=== PATIENT | female | born 1990 | race African-American/Black ===

== ENCOUNTER 2017-12-18 16:20 | Emergency (ER) | payer MEDICAID ==
[~2017-12-18] VITALS: Ht 170.2 cm; Wt 90.0 kg
[2017-12-18] MEDS ORDERED: FAMOTIDINE 20MG/2ML VIAL IV STA (16:27)
[2017-12-18] MEDS ORDERED: ONDANSETRON HCL 4MG/2ML VIAL IV STA (16:27)
[2017-12-18] MEDS ORDERED: SODIUM CHLORIDE 0.9% 1,000 ML IV ONE ×2 (16:27→20:15)
[2017-12-18 16:49] LABS: BASOPHILS % 0.7 % (0.0-2.0); EOSINOPHILS % 0.3 % (0.0-5.0); HEMATOCRIT. 37.8 % (36.0-48.0); HEMOGLOBIN. 12.9 g/dL (12.0-16.0); LYMPHOCYTES % 29.6 % (20.0-50.0); MEAN CORPUSCULAR HEMOGLOBIN 28.9 pg (28.0-32.0); MEAN CORPUSCULAR VOLUME 84.5 fL (81.0-99.0); NEUTROPHILS % 62.4 % (40.0-76.0); PLATELET 262 x1000/uL (130-400); RED BLOOD CELL COUNT 4.47 mill/uL (4.2-5.4); RED CELL DISTRIBUTION WIDTH 13.7 % (11.6-14.6)
[2017-12-18 16:54] LABS: CHLORIDE 106 mEq/L (98-107)
[2017-12-18 17:00] LABS: PARTIAL THROMBOPLASTIN TIME 30.5 sec (23.4-31.0); PROTHROMBIN TIME 10.3 sec (9.4-11.6)
[2017-12-18 17:18] LABS: B-HCG QUANTITATIVE 11613 mIU/mL (<3)
[2017-12-18] MEDS ORDERED: ACETAMINOPHEN 325MG TABLET PO ONE (20:15)
[2017-12-18 21:27] LABS: CLARITY URINE CLEAR (CLEAR); COLOR URINE YELLOW (YELLOW); KETONES URINE 3+ (NEGATIVE); LEUKOCYTE ESTERASE URINE NEGATIVE (NEGATIVE); NITRITE URINE NEGATIVE (NEGATIVE); OCCULT BLOOD URINE NEGATIVE (NEGATIVE); PROTEIN URINE NEGATIVE (NEGATIVE); SPECIFIC GRAVITY URINE 1.021 (1.005-1.030)
[2017-12-18 21:50] VITALS: BP 126/64
== END 2017-12-18 22:50 | disposition short-term general hospital (02) ==
LOC: ER 18:02
DX: O26.892 Other specified pregnancy related conditions, second trimester (principal); E86.0 Dehydration; N83.201 Unspecified ovarian cyst, right side; O99.282 Endocrine, nutritional and metabolic diseases complicating pregnancy, second trimester; N89.8 Other specified noninflammatory disorders of vagina; O34.82 Maternal care for other abnormalities of pelvic organs, second trimester; Z3A.18 18 weeks gestation of pregnancy
CPT/HCPCS: 36415; 72195; 74181; 76805; 76857; 80053; 81003; 83690; 84702; 85025; 85610; 85730; 86850; 86900; 86901; 87086; 96361; 96374; 99285; J3490; J7030; J2405